=== PATIENT | female | born 1965 | race Caucasian/White ===

== ENCOUNTER 2017-02-15 17:55 | Emergency (ER) | payer BC ==
[2017-02-15 18:42] VITALS: BP 157/87
--- NOTE | 2017-02-15 19:31 | EDM.PDOC ---
ED HPI GENERAL MEDICAL PROBLEM - General Chief Complaint: Lower Extremity Injury/Pain Stated Complaint: R FOOT INJURY Time Seen by Provider: 02/15/17 19:21 Source of Information: Reports: Patient History Limitations: Reports: No Limitations - History of Present Illness INITIAL COMMENTS - FREE TEXT/NARRATIVE: 51-year-old female presents for evaluation treatment of injury to the right ankle. Patient reports that evening she was out walking her dog. She states that she became startled and stepped off the side of the concrete landing on an inverted right foot and ankle. She states that she felt something pop or crack. She reports that she has been walking on it since. She did appreciate some swelling that night but she has been icing it, utilizing ibuprofen and wrapping the ankle and the swelling has subsided. She denies any numbness or tingling to the foot. She reports today she appreciated bruising to the right lateral ankle and increased pain with movement. Therefore she decided to be checked out. No previous injury to the right foot or ankle. Treatments [employer]: Reports: Other (see below) Other Treatments [employer]: tylenol 2 tabs this afternoon Right Feet Pain Score (Numeric/FACES): 7 - Related Data Allergies Allergy/AdvReac Type Severity Reaction Status Date / Time No Known Allergies Allergy Verified 02/15/17 18:45 Home Meds: Home Meds Cetirizine [ZyrTEC] 10 mg PO DAILY 02/15/17 [History] Past Medical History - Past Surgical History Female Surgical History: Reports: Section Social & Family History - Tobacco Use Smoking Status *Q: Never Smoker - Caffeine Use Caffeine Use: Reports: Coffee, Soda, Tea - Recreational Drug Use Recreational Drug Use: No Review of Systems - Review of Systems Review Of Systems: See Below Musculoskeletal: Reports: Joint Pain (right ankle), Joint Swelling (to the right ankle initally; now resolved) Skin: Reports: Bruising (right lateral distal ankle) Neurological: Reports: Difficulty Walking (increased pain today; has been wlking on the ankle prior to today). Denies: Numbness, Tingling ED EXAM, GENERAL - Physical Exam Exam: See Below Exam Limited By: No Limitations General Appearance: Alert, WD/WN, No Apparent Distress Respiratory/Chest: No Respiratory Distress Cardiovascular: Normal Peripheral Pulses, Regular Rate, Rhythm Peripheral Pulses: 3+: Posterior Tibial (L), Posterior Tibial (R), Dorsalis Pedis (L), Dorsalis Pedis (R) Extremities: Normal Inspection, Limited Range of Motion (pain with inversion and eversion of the right ankle; normal dorsiflexion and plantarflexion), Other (tenderness to palpation of the right lateral distal ankle; no tenderness to the proximal lateral malleolus; no pain across the dorsal right foot) Neurological: Alert, Oriented, Normal Cognition Psychiatric: Normal Affect, Normal Mood Skin Exam: Warm, Dry, Ecchymosis (right lateral distal malleolus approximately 5cm x 3cm) Course - Vital Signs Last Recorded V/S: Last Vital Signs Temp 36.6 C 02/15/17 18:41 Pulse 57 L 02/15/17 18:41 Resp 20 02/15/17 18:41 BP 157/87 H 02/15/17 18:41 Pulse Ox 93 L 02/15/17 18:41 - Orders/Labs/Meds Orders: Active Orders 24 hr Category Date Time Status Ankle Min 3V Rt [CR] Stat Exams 02/15/17 19:20 Taken - Radiology Interpretation Free Text/Narrative:: xray of the right ankle shows no acute fractures or dislocations. Reviewed by myself and Dr. Hebert. - Re-Assessments/Exams Free Text/Narrative Re-Assessment/Exam: 02/15/17 20:50 I reviewed the x-ray results with the patient. She has crutches at home. I will have her continue with her current management and utilize crutches. Wrap the ankle. Ice. Ibuprofen or Tylenol as needed. Follow-up in one week. Discharge instructions as documented. Departure - Departure Time of Disposition: 20:57 Disposition: Home, Self-Care 01 Condition: Good Clinical Impression: Ankle sprain Qualifiers: Encounter type: initial encounter Involved ligament of ankle: other ligament Laterality: right Qualified Code(s): S93.491A - Sprain of other ligament of right ankle, initial encounter - Discharge Information Instructions: Ankle Sprain, [id number] Referrals: PCP,None [Primary Care Provider] - Luther Gonzalez MD [Physician] - Forms: ED Department Discharge Additional Instructions: [id number] Tylenol or Motrin as needed for pain relief. Crutches for the next week. Wrap the ankle with an Anderson bandage. Ice the ankle 4-5 times a day for 15-20 minutes. Elevate the ankle. Follow-up with your primary care provider in one week if your symptoms are not better. Please return to the ER if your symptoms change or worsen. - My Orders Last 24 Hours: My Active Orders 02/15/17 19:20 Ankle Min 3V Rt [CR] Stat - Assessment/Plan Last 24 Hours: My Active Orders 02/15/17 19:20 Ankle Min 3V Rt [CR] Stat
--- NOTE | 2017-02-20 10:47 | CR ---
Right ankle: Four views of the right ankle were obtained. Comparison: No previous study. Ankle mortise is symmetric. No fracture, dislocation or other bony abnormality is seen. Impression: 1. No abnormality is identified on right ankle exam. Diagnostic code #1
== END 2017-02-15 21:05 | disposition home or self-care (01) ==
LOC: JD.ED 17:55
DX: S93.491A Sprain of other ligament of right ankle, initial encounter (principal); X50.1XXA Overexertion from prolonged static or awkward postures, initial encounter
CPT/HCPCS: 73610-26-RT; 73610-RT; 99282; 99284